=== PATIENT | female | born 1965 | race Caucasian/White ===

== ENCOUNTER 2019-10-26 07:41 | Outpatient (CLI) | payer BC, SELFPAY ==
--- NOTE | 2019-10-26 07:47 | MR_ITS ---
WS: [id number] MRI HEAD WITHOUT CONTRAST TECHNIQUE: Sagittal T1, T2 axial, T2 axial FLAIR, axial and coronal T1 images, axial susceptibility w eighted imaging, axial diffusion weighted images, and coronal T2 images were obtained. Some images ar e degraded due to susceptibility artifact. CLINICAL INFORMATION: TRIGEMINAL NEURALGIA OF LEFT SIDE OF FACE COMPARISON: None. FINDINGS: No evidence of restricted diffusion to suggest acute ischemia. Ventricular system and basal cisterns are patent. Minimal small vessel changes. Mild parenchymal volume loss. Normal posterior fossa. Jada l vascular flow voids at the skull base. No extra-axial fluid collections. No evidence of mass or mas s effect. No hemosiderin on the susceptibly weighted images. Normal optic chiasm and pituitary infundibulum. Temporal lobes and hippocampal formations are normal in appearance. No temporal lobe signal abnormalities. Visualized cavernous sinus and trigeminal nerve root entry zones appear normal. MR/MR head wo con* [id number] IMPRESSION: 1. No evidence of restricted diffusion to suggest acute ischemia. 2. Mild small vessel changes with mild parenchymal volume loss. 3. Temporal lobes and hippocampal formations are normal in appearance. No asym metric atrophy or temporal lobe signal abnormalities. 4. Normal optic chiasm and pituitary infundibulum. 5. Visualized left cavernous sinus and trigeminal nerve root entry zone appear normal.
== END 2019-10-26 07:42 | disposition home or self-care (01) ==
LOC: RADSHAW 07:44
PROVIDERS: Family Provider Internal Medicine; PCP Internal Medicine; Visit Provider Internal Medicine
DX: G50.0 Trigeminal neuralgia (principal)
CPT/HCPCS: 70551

== ENCOUNTER → 2020-03-17 12:41 | Outpatient (BNVA) | payer BC, SELFPAY | PROVIDERS: Absent Provider Dermatology; Family Provider Internal Medicine; PCP Internal Medicine; Visit Provider Dermatology | DX: L71.9 Rosacea, unspecified (principal); L57.0 Actinic keratosis; B07.8 Other viral warts; D18.01 Hemangioma of skin and subcutaneous tissue; L73.8 Other specified follicular disorders; L98.8 Other specified disorders of the skin and subcutaneous tissue | CPT/HCPCS: 17000; 17003; 99202; 99203 ==

== ENCOUNTER → 2020-03-25 08:23 | Outpatient (BNVA) | payer SELFPAY | PROVIDERS: Family Provider Internal Medicine; PCP Internal Medicine; Visit Provider Dermatology | DX: L98.8 Other specified disorders of the skin and subcutaneous tissue (principal); Z41.1 Encounter for cosmetic surgery | CPT/HCPCS: 64612; G0463; J0585 ==

== ENCOUNTER → 2020-04-09 08:18 | Outpatient (BNVA) | payer SELFPAY | PROVIDERS: Family Provider Internal Medicine; PCP Internal Medicine; Visit Provider Dermatology | DX: L98.8 Other specified disorders of the skin and subcutaneous tissue (principal); Z41.1 Encounter for cosmetic surgery | CPT/HCPCS: 64612; J0585 ==

== ENCOUNTER → 2020-05-20 13:56 | Outpatient (BNVA) | payer BC, SELFPAY | PROVIDERS: Family Provider Internal Medicine; PCP Internal Medicine; Visit Provider Dermatology | DX: L71.9 Rosacea, unspecified (principal); B07.8 Other viral warts; L72.0 Epidermal cyst | CPT/HCPCS: 17110; 99213 ==

== ENCOUNTER 2020-07-17 11:30 | Outpatient (CLI) | payer BC, SELFPAY ==
--- NOTE | 2020-07-17 11:37 | MM_ITS ---
WS: [id number] BILATERAL DIGITAL SCREENING MAMMOGRAPHY WITH CAD CLINICAL INFORMATION: SCREENING HISTORY: Screening mammogram. No current complaints. COMPARISON: TECHNIQUE: Bilateral CC and MLO views. FINDINGS: The breasts are composed of heterogeneous fibroglandular density tissue, which can limit the detectio n of small underlying mass lesions. Stable dense asymmetric breast tissue upper outer right breast. N o suspicious mass, asymmetry, calcifications, or architectural distortion. No evidence of malignancy. MM/[id number] IMPRESSION: BI-RADS: 2-Benign FOLLOW UP: 1 Year Follow-up Recommend return to annual screening mammography.
== END 2020-07-17 11:31 | disposition home or self-care (01) ==
LOC: RADSHAW 11:35
PROVIDERS: PCP Internal Medicine; Visit Provider Obstetrics & Gynecology
DX: Z12.31 Encounter for screening mammogram for malignant neoplasm of breast (principal)
CPT/HCPCS: 77067

== ENCOUNTER 2021-10-01 09:17 | Outpatient (CLI) | payer BC, SELFPAY ==
--- NOTE | 2021-10-01 09:25 | MM_ITS ---
WS: [id number] BILATERAL SCREENING DIGITAL MAMMOGRAM WITH CAD HISTORY: SCREENING COMPARISON: 07/17/2020, 06/15/2019 and 04/17/2018 Bilateral CC and MLO views submitted. Computer aided detection analyzed. Breast composition: There are scattered areas of fibroglandular density. No suspicious masses, microc alcifications or architectural distortion. Scattered asymmetries are stable over multiple prior exami nations. No distortion. No developing calcifications. MM/[place] [id number] IMPRESSION: BI-RADS: 2-Benign FOLLOW UP: 1 Year Follow-up
== END 2021-10-01 09:18 | disposition home or self-care (01) ==
LOC: RADSHAW 09:19
PROVIDERS: PCP Internal Medicine; Visit Provider Internal Medicine
DX: Z12.31 Encounter for screening mammogram for malignant neoplasm of breast (principal)
CPT/HCPCS: 77067

== ENCOUNTER 2022-11-04 11:24 | Outpatient (CLI) | payer OTHER, SELFPAY ==
--- NOTE | 2022-11-04 11:33 | MM_ITS ---
WS: [id number] BILATERAL SCREENING DIGITAL TOMOSYNTHESIS MAMMOGRAM WITH CAD HISTORY: SCREEN COMPARISON: 10/01/2021, 07/17/2020 Bilateral CC and MLO views with tomosynthesis and synthetic mammography submitted. Computer aided det ection analyzed. Breast composition: The breasts are heterogeneously dense, which may obscure small masses. No suspici ous masses, microcalcifications or architectural distortion. Asymmetries in the LEFT breast are stabl e over multiple prior studies. MM/[id number] IMPRESSION: BI-RADS: 2-Benign FOLLOW UP: 1 Year Follow-up
== END 2022-11-04 11:25 | disposition home or self-care (01) ==
LOC: RAD 11:28
PROVIDERS: PCP Internal Medicine; Visit Provider Obstetrics & Gynecology
DX: Z12.31 Encounter for screening mammogram for malignant neoplasm of breast (principal)
CPT/HCPCS: 77063; 77067

== ENCOUNTER 2023-04-01 16:02 | Outpatient (CLI) | payer OTHER, SELFPAY ==
--- NOTE | 2023-04-01 16:15 | US_ITS ---
WS: [id number] ULTRASOUND SOFT TISSUES RIGHT supraclavicular region. HISTORY: R22.1 - Localized swelling, mass and lump, neck COMPARISON: None available. TECHNIQUE: 2-D and color Doppler imaging is submitted. Ultrasound is directed to the RIGHT supraclavicular region. There is a benign appearing lymph node me asuring 8 x 4 mm. No increased vascularity. No additional lymph nodes are identified. US/US soft tissue head neck [id number] IMPRESSION: Palpable area in the RIGHT supraclavicular region corresponds to a benign-appea ring lymph node.
== END 2023-04-01 16:03 | disposition home or self-care (01) ==
LOC: RAD 16:04
PROVIDERS: PCP Internal Medicine; Visit Provider Obstetrics & Gynecology
DX: R22.1 Localized swelling, mass and lump, neck (principal)
CPT/HCPCS: 76536

== ENCOUNTER 2023-06-14 16:51 | Emergency (ER) | payer OTHER, SELFPAY ==
[2023-06-14 17:03] VITALS: BP 162/80; PULSE 90; RESP 18; TEMP 36.8; O2SAT 92; BMI 31.8
--- NOTE | 2023-06-14 17:06 | CTR_ITS ---
PROCEDURE INFORMATION: Exam: CT Abdomen And Pelvis With Contrast Exam date and time: 06/14/2023 5:54 PM Age: 58 years old Clinical indication: Abdominal pain; Acute; Prior surgery; Surgery date: 6+ months; Surgery type: Coty hyst tubal; Additional info: Abd pain TECHNIQUE: Imaging protocol: Computed tomography of the abdomen and pelvis with contrast. Radiation optimization: All CT scans at this facility use at least one of these dose optimization techniques: automated exposure control; mA and/or kV adjustment per patient size (includes targeted exams where dose is matched to clinical indication); or iterative reconstruction. Contrast material: OMNI 350; Contrast volume: 100 ml; Contrast route: INTRAVENOUS (IV); REPORTING DATA: Count of CT and Cardiac NM exams in prior 12 months: This patient has received 0 known CTs and 0 known cardiac nuclear medicine studies in the 12 months prior to the current study. COMPARISON: CR XR abdomen 1V* [id number] 07/13/2019 9:40 AM RADIATION DOSE METRICS: Total DLP (mGy-cm): 723.61 FINDINGS: Liver: Normal. No mass. Gallbladder and bile ducts: The gallbladder is absent. Pancreas: Normal. No ductal dilation. Spleen: Normal. No splenomegaly. Adrenal glands: Normal. No mass. Kidneys and ureters: Normal. No hydronephrosis. Stomach and bowel: Unremarkable. No obstruction. No mucosal thickening. Appendix: The appendix is absent. Intraperitoneal space: Unremarkable. No free air. No significant fluid collection. Vasculature: Unremarkable. No abdominal aortic aneurysm. Lymph nodes: Unremarkable. No enlarged lymph nodes. Urinary bladder: Unremarkable as visualized. Reproductive: There is a 3.1 x 2.3 cm cystic structure in the left ovary. This is incompletely assessed on this examination and can be further assessed with pelvic ultrasound if clinically indicated. Bones/joints: Unremarkable. No acute fracture. Soft tissues: Unremarkable. CT/CT abdomen pelvis w con* [id number] IMPRESSION: 1. No bowel obstruction or inflammatory process associated with the bowel. 2. No free air or significant free fluid in the abdomen or pelvis. 3. The appendix is absent. 4. There is a 3.1 x 2.3 cm cystic structure in the left ovary. This is incompletely assessed on this examination and can be further assessed with pelvic ultrasound if clinically indicated.
--- NOTE | 2023-06-14 17:09 | ED.C_ITS ---
Documented by User: Nerissa Schaffer MD 06/14/23 19:13 HPI - Psych General: Chief Complaint: Abdominal Pain Stated Complaint: abdominal pain Time Seen by Provider: 06/14/23 16:54 Source: patient Mode of arrival: ambulatory Limitations: no limitations History of Present Illness: 58-year-old female states she had a colonoscopy yesterday had a polyp removed states that she has had increasing pain last night and today. States mainly in her lower quadrants but is diffuse rates pain 8 out of 10 currently denies any vomiting denies any diarrhea denies any worsening proving factors she has had no fevers. 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 Gill at [facility] History of eye surgery (~10/2019) Treatment of glaucoma History of laparoscopic appendectomy (09/17/12) Performed by Dr. Hinojosa at [facility]. History of laparoscopic cholecystectomy (~1993) History of right breast biopsy (08/09/13) Performed by Dr. Hinojosa. Benign pathology. History of vaginal hysterectomy (~12/2001) TVH with A&P repair. Performed by Dr. Leslie at [facility]. Status post colonoscopy Family History (Updated 05/30/23 @ 15:46 by Jeanie Strickland MD) Father Hypertension Diabetes Heart disease Hypercholesteremia Mother Hypertension Diabetes Heart disease CAD (coronary artery disease) Brother Diabetes Grandmother Dementia Cancer Hodgkin lymphoma Grandfather Cancer prostate Social History Smoking and tobacco status: never smoked Alcohol intake: current Alcohol intake frequency: few times a month Alcohol type: wine Substance/Drug Use: never Lives independently: Yes Household members: spouse and children Marital status: Number of children: 3 Current occupational status: employed Current occupation: [employer]: [employer] Special cookie needs: No Agree to transfusion: Yes Physical Exam Const: COMMON NORMALS: no acute distress, patient oriented x3 and healthy appearing HENMT: COMMON NORMALS: normocephalic and atraumatic HEAD & SCALP: normocephalic and atraumatic Eye: COMMON NORMALS: conjunctivae normal CONJUNCTIVA: Yes conjunctivae normal Neck/C-Spine: COMMON NORMALS: full ROM and supple Chest: COMMONS NORMALS: normal inspection of the chest and normal palpation of entire chest wall Resp: COMMON NORMALS: normal respiratory effort Cardio: COMMON NORMALS: regular rate, regular rhythm and No murmurs present (Cardio) RATE: regular rate RHYTHM: regular rhythm GI: COMMON NORMALS: Normal to inspection, nondistended, normoactive bowel sounds present, Soft to palpation and no masses PALPATION: Yes Soft to palpation OTHER: diffuse tenderness Extremity: COMMON NORMALS: normal to inspection and full ROM Neuro: COMMON NORMALS: patient oriented x3, moves all extremities and no focal motor deficits Psych: COMMON NORMALS: mental status grossly normal, Normal thought process present and cooperative THOUGHT PROCESS: Normal thought process present Skin: COMMON NORMALS: no rashes or lesions noted and no wounds GENERAL SKIN EXAM: no rashes or lesions noted Course Vital Signs: Vital signs: Vital Signs Temperature 98.3 F 06/14/23 17:03 Pulse Rate 88 06/14/23 19:02 Respiratory Rate 16 06/14/23 19:02 Blood Pressure 146/78 06/14/23 19:02 Pulse Oximetry 93 06/14/23 19:02 Oxygen Delivery Me thod Room Air 06/14/23 18:30 MDM - Psych Medical Decision Making Patient presents here with abdominal pain CT scan here showed no acute abnormality she did have a possible left ovarian cyst her pain is mainly on the right side no signs of bowel perforation her pain has improved here she is to follow-up with Dr. Hinojosa who did her colonoscopy return if worsening she understands agrees to plan. Medical Records I reviewed the patient's medical records. Lab Data I reviewed the patient's lab results. 06/14/23 17:26 06/14/23 17:26 Radiology Impressions Abdomen/Pelvis CT 06/14/23 17: IMPRESSION: 1. No bowel obstruction or inflammatory process associated with the bowel. 2. No free air or significant free fluid in the abdomen or pelvis. 3. The appendix is absent. 4. There is a 3.1 x 2.3 cm cystic structure in the left ovary. This is incompletely assessed on this examination and can be further assessed with pelvic ultrasound if clinically indicated. Laboratory Results WBC 14.93 10^3/uL (3.29-11.43) H 06/14/23 17: RBC 4.97 10^6/uL (3.85-5.65) 06/14/23 17: Hgb 14.80 g/dL (11.27-16.99) 06/14/23: Hct 43.7 % (36-47) 06/14/23 17: MCV 87.9 fl (85-98) 06/14/23 17: MCH 29.8 pg (27-33) 06/14/23: MCHC 33.9 g/dL (30-55) 06/14/23: RDW 11.8 % (12.1-15.1) L 06/14/23 17: Plt Count 294 10^3/cmm (157-399) 06/14/23 17: MPV 9.2 fL (7.4-10.4) 06/14/23 17: Neut % (Auto) 80.2 % 06/14/23 17: Lymph % (Auto) 13.1 % 06/14/23 17: [place] % (Auto) 5.4 % 06/14/23: Eos % (Auto) 0.4 % 06/14/23: Baso % (Auto) 0.4 % 06/14/23: Neut # (Auto) 11.98 10^3/uL (1.8-7.7) H 06/14/23 17: Lymph # (Auto) 2.0 10^3/uL (0.8-4.8) 06/14/23 17:26 [place] # (Auto) 0.8 10^3/uL (0.2-0.9) 06/14/23 17:26 Eos # (Auto) 0.1 10^3/uL (0.0-0.8) 06/14/23 17:26 Baso # (Auto) 0.1 10^3/uL (0.0-0.1) 06/14/23 17:26 Nucleated RBC % (auto) 0 % 06/14/23 17:26 Nucleated RBCs # 0.0 /100WBC 06/14/23 17:26 Sodium 137 mmol/L (136-145) 06/14/23 17:26 Potassium 4.0 mmol/L (3.5-5.1) 06/14/23 17:26 Chloride 103 mmol/L (98-107) 06/14/23 17:26 Carbon Dioxide 23 mmol/L (22-29) 06/14/23 17:26 Anion Gap 15.0 (5-19) 06/14/23 17:26 BUN 10 mg/dL (6-20) 06/14/23 17:26 Creatinine 0.7 mg/dL (0.5-0.9) 06/14/23 17:26 GFR Calculation 86.2 mL/min (90-130) L 06/14/23 17:26 Glucose 216 mg/dL (65-115) H 06/14/23 17:26 Calculated Osmolality 290 mOsm/kg (285-295) 06/14/23 17:26 Calcium 8.7 mg/dL (8.5-10.5) 06/14/23 17:26 Total Bilirubin 0.7 mg/dL (0.15-1.2) 06/14/23 17:26 AST 10 U/L (0-32) 06/14/23 17:26 ALT 16 U/L (0-33) 06/14/23 17:26 Alkaline Phosphatase 94 U/L (35-105) 06/14/23 17:26 Total Protein 6.9 g/dL (6.6-8.7) 06/14/23 17:26 Albumin 4.1 g/dL (3.5-5.2) 06/14/23 17:26 Globulin 2.8 g/dL (1.3-4.6) 06/14/23 17:26 Lipase 22 U/L (13-60) 06/14/23 17:26 All radiology interpretation(s) finalized by discharge Discharge Plan Discharge Patient Disposition: Home Clinical Impression: Abdominal pain Condition: Stable Prescriptions: New hydrocodone-acetaminophen 5-325 mg tablet 1 tab PO Q6H PRN (Reason: pain) Qty: 14 0RF ondansetron 4 mg tablet,disintegrating 4 mg PO Q6H PRN (Reason: nausea and vomiting) Qty: 14 0RF No Action aspirin 81 mg tablet,delayed release (DR/EC) 81 mg PO DAILY latanoprost 0.005 % drops 1 drop ophthalmic (eye) DAILY omeprazole 40 mg capsule,delayed release(DR/EC) 40 mg PO DAILY dorzolamide-timolol (PF) 2-0.5 % drops 1 drp ophthalmic (eye) BID hydroxychloroquine 200 mg tablet 200 mg PO BID Qty: 180 3RF prednisone 10 mg tablet See Rx Instructions PO .COMPLEX PRN (Reason: joint pain) Qty: 30 1RF Rx Instructions: take 1 tab daily for 3-7 days prn joint pain flare PO PRN; metformin 500 mg tablet 500 mg PO DAILY Qty: 90 0RF Discharge Orders: Discharge ED (Routine); Ordered 06/14/23 Ordered By: Nerissa Schaffer Referrals: Alli Hinojosa MD [Physician] - 1-3 days Jeanie Strickland MD [Primary Care Provider] - Discharge Diet: Advance as tolerated Discharge Activity: Resume usual activity Patient Instructions: Abdominal Pain (ED), Opioid Safety Coding Level of Care Code ED Land Conservation Specialist for Chg Fwd Documented by User: CHARIS Crooks 06/14/23 17:44 HPI - Psych General: Chief Complaint: Abdominal Pain Stated Complaint: abdominal pain Time Seen by Provider: 06/14/23 16:54 PFSH ED PFSH: Medical History Diabetes Gastroesophageal reflux 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 Gill at [facility] History of eye surgery (~10/2019) Treatment of glaucoma History of laparoscopic appendectomy (09/17/12) Performed by Dr. Hinojosa at [facility]. History of laparoscopic cholecystectomy (~1993) History of right breast biopsy (08/09/13) Performed by Dr. Hinojosa. Benign pathology. History of vaginal hysterectomy (~12/2001) TVH with A&P repair. Performed by Dr. Leslie at [facility]. Status post colonoscopy Family History (Updated 05/30/23 @ 15:46 by Jeanie Strickland MD) Father Hypertension Diabetes Heart disease Hypercholesteremia Mother Hypertension Diabetes Heart disease CAD (coronary artery disease) Brother Diabetes Grandmother Dementia Cancer Hodgkin lymphoma Grandfather Cancer prostate Social History Smoking and tobacco status: never smoked Alcohol intake: current Alcohol intake frequency: few times a month Alcohol type: wine Substance/Drug Use: never Lives independently: Yes Household members: spouse and children Marital status: Number of children: 3 Current occupational status: employed Current occupation: [employer]: [employer] Special cookie needs: No Agree to transfusion: Yes Course ED course: Note was inadvertently started on patient however Dr. Schaffer assumed care/started note. I never saw or assessed patient nor was I involved in any portion of her care. ES Vital Signs: Vital signs: Vital Signs Temperature 98.3 F 06/14/23 17:03 Pulse Rate 88 06/14/23 19:02 Respiratory Rate 16 06/14/23 19:02 Blood Pressure 146/78 06/14/23 19:02 Pulse Oximetry 93 06/14/23 19:02 Oxygen Delivery Me thod Room Air 06/14/23 18:30 MDM - Psych Lab Data 06/14/23 17:26 06/14/23 17:26 Radiology Impressions Abdomen/Pelvis CT 06/14/23 17:06 IMPRESSION: 1. No bowel obstruction or inflammatory process associated with the bowel. 2. No free air or significant free fluid in the abdomen or pelvis. 3. The appendix is absent. 4. There is a 3.1 x 2.3 cm cystic structure in the left ovary. This is incompletely assessed on this examination and can be further assessed with pelvic ultrasound if clinically indicated. Laboratory Results WBC 14.93 10^3/uL (3.29-11.43) H 06/14/23 17: RBC 4.97 10^6/uL (3.85-5.65) 06/14/23 17: Hgb 14.80 g/dL (11.27-16.99) 06/14/23 17: Hct 43.7 % (36-47) 06/14/23: MCV 87.9 fl (85-98) 06/14/23: MCH 29.8 pg (27-33) 06/14/23: MCHC 33.9 g/dL (30-55) 06/14/23: RDW 11.8 % (12.1-15.1) L 06/14/23: Plt Count 294 10^3/cmm (157-399) 06/14/23: MPV 9.2 fL (7.4-10.4) 06/14/23 17: Neut % (Auto) 80.2 % 06/14/23: Lymph % (Auto) 13.1 % 06/14/23: [place] % (Auto) 5.4 % 06/14/23: Eos % (Auto) 0.4 % 06/14/23: Baso % (Auto) 0.4 % 06/14/23: Neut # (Auto) 11.98 10^3/uL (1.8-7.7) H 06/14/23 17: Lymph # (Auto) 2.0 10^3/uL (0.8-4.8) 06/14/23: [place] # (Auto) 0.8 10^3/uL (0.2-0.9) 06/14/23 17: Eos # (Auto) 0.1 10^3/uL (0.0-0.8) 06/14/23: Baso # (Auto) 0.1 10^3/uL (0.0-0.1) 06/14/23 17:26 Nucleated RBC % (auto) 0 % 06/14/23 17:26 Nucleated RBCs # 0.0 /100WBC 06/14/23 17:26 Sodium 137 mmol/L (136-145) 06/14/23 17:26 Potassium 4.0 mmol/L (3.5-5.1) 06/14/23 17:26 Chloride 103 mmol/L (98-107) 06/14/23 17:26 Carbon Dioxide 23 mmol/L (22-29) 06/14/23 17:26 Anion Gap 15.0 (5-19) 06/14/23 17:26 BUN 10 mg/dL (6-20) 06/14/23 17:26 Creatinine 0.7 mg/dL (0.5-0.9) 06/14/23 17:26 GFR Calculation 86.2 mL/min (90-130) L 06/14/23 17:26 Glucose 216 mg/dL (65-115) H 06/14/23 17:26 Calculated Osmolality 290 mOsm/kg (285-295) 06/14/23 17:26 Calcium 8.7 mg/dL (8.5-10.5) 06/14/23 17:26 Total Bilirubin 0.7 mg/dL (0.15-1.2) 06/14/23 17:26 AST 10 U/L (0-32) 06/14/23 17:26 ALT 16 U/L (0-33) 06/14/23 17:26 Alkaline Phosphatase 94 U/L (35-105) 06/14/23 17:26 Total Protein 6.9 g/dL (6.6-8.7) 06/14/23 17:26 Albumin 4.1 g/dL (3.5-5.2) 06/14/23 17:26 Globulin 2.8 g/dL (1.3-4.6) 06/14/23 17:26 Lipase 22 U/L (13-60) 06/14/23 17:26 Discharge Plan Discharge Patient Disposition: Home Clinical Impression: Abdominal pain Condition: Stable Prescriptions: New hydrocodone-acetaminophen 5-325 mg tablet 1 tab PO Q6H PRN (Reason: pain) Qty: 14 0RF ondansetron 4 mg tablet,disintegrating 4 mg PO Q6H PRN (Reason: nausea and vomiting) Qty: 14 0RF No Action aspirin 81 mg tablet,delayed release (DR/EC) 81 mg PO DAILY latanoprost 0.005 % drops 1 drop ophthalmic (eye) DAILY omeprazole 40 mg capsule,delayed release(DR/EC) 40 mg PO DAILY dorzolamide-timolol (PF) 2-0.5 % drops 1 drp ophthalmic (eye) BID hydroxychloroquine 200 mg tablet 200 mg PO BID Qty: 180 3RF prednisone 10 mg tablet See Rx Instructions PO .COMPLEX PRN (Reason: joint pain) Qty: 30 1RF Rx Instructions: take 1 tab daily for 3-7 days prn joint pain flare PO PRN; metformin 500 mg tablet 500 mg PO DAILY Qty: 90 0RF Discharge Orders: Discharge ED (Routine); Ordered 06/14/23 Ordered By: Nerissa Schaffer Referrals: Alli Hinojosa MD [Physician] - 1-3 days Jeanie Strickland MD [Primary Care Provider] - Discharge Diet: Advance as tolerated Discharge Activity: Resume usual activity Patient Instructions: Abdominal Pain (ED), Opioid Safety Coding Level of Care Code ED Land Conservation Specialist for Yandy Pope
[2023-06-14 17:28] VITALS: RESP 18; O2SAT 94
[2023-06-14] MEDS: HYDROmorphone 1 mg/mL INJ 1 mL IVP (17:28)
[2023-06-14] MEDS: ondansetron 2 mg/ML SDV 2 mL 4 MG IVP (17:28)
[2023-06-14 17:32] LABS: Basophils # 0.1 10^3/uL (0.0-0.1); Basophils % 0.4 %; Eosinophils # 0.1 10^3/uL (0.0-0.8); Eosinophils % 0.4 %; Hematocrit 43.7 % (36-47); Lymphocytes % 13.1 %; Mean Corpuscular HGB Conc 33.9 g/dL (30-55); Mean Corpuscular Hemoglobin 29.8 pg (27-33); Mean Corpuscular Volume 87.9 fl (85-98); Mean Platelet Volume 9.2 fL (7.4-10.4); Monocytes # 0.8 10^3/uL (0.2-0.9); Monocytes % 5.4 %; Neutrophils # 11.98 10^3/uL (1.8-7.7); Neutrophils % 80.2 %; Nucleated Red Blood Cells % 0 %; Platelet Count 294 10^3/cmm (157-399); Red Blood Count 4.97 10^6/uL (3.85-5.65); Red Cell Distribution Width 11.8 % (12.1-15.1); White Blood Count 14.93 10^3/uL (3.29-11.43)
[2023-06-14] MEDS: iohexol 350 mg/mL 500 mL Btl (per mL) IV (17:55)
[2023-06-14 17:58] LABS: Alanine Aminotransferase 16 U/L (0-33); Albumin Level 4.1 g/dL (3.5-5.2); Alkaline Phosphatase 94 U/L (35-105); Aspartate Amino Transferase 10 U/L (0-32); Blood Urea Nitrogen 10 mg/dL (6-20); Calcium 8.7 mg/dL (8.5-10.5); Carbon Dioxide 23 mmol/L (22-29); Chloride 103 mmol/L (98-107); Globulin 2.8 g/dL (1.3-4.6); Glomerular Filtration Rate 86.2 mL/min (90-130); Glucose 216 mg/dL (65-115); Lipase 22 U/L (13-60); Osmolality Calculated 290 mOsm/kg (285-295); Sodium 137 mmol/L (136-145); Total Bilirubin 0.7 mg/dL (0.15-1.2); Total Protein 6.9 g/dL (6.6-8.7)
[2023-06-14 18:29] VITALS: BP 165/76; PULSE 85; RESP 16; O2SAT 92
[2023-06-14 18:30] VITALS: O2SAT 95
[2023-06-14 19:02] VITALS: BP 146/78; PULSE 88; RESP 16; O2SAT 93
== END 2023-06-14 19:03 | disposition home or self-care (01) ==
PROVIDERS: Physician Assistant; Emergency Provider Emergency Medicine; PCP Family Medicine
DX: R10.30 Lower abdominal pain, unspecified (principal); N83.202 Unspecified ovarian cyst, left side; Z79.82 Long term (current) use of aspirin; Z79.02 Long term (current) use of antithrombotics/antiplatelets; E11.9 Type 2 diabetes mellitus without complications; E78.5 Hyperlipidemia, unspecified
CPT/HCPCS: 74177; 80053; 83690; 85025; 96374; 96375; 99285; J1170; J2405; Q9967

== ENCOUNTER → 2023-08-05 12:37 | Outpatient (BNVA) | payer OTHER, SELFPAY | PROVIDERS: PCP Family Medicine; Visit Provider Family Medicine | DX: Z79.899 Other long term (current) drug therapy (principal); M19.90 Unspecified osteoarthritis, unspecified site | CPT/HCPCS: 80076; 82565; 85025; 86140 ==

== ENCOUNTER → 2024-01-06 12:09 | Outpatient (BNVA) | payer OTHER, SELFPAY | PROVIDERS: PCP Family Medicine; Visit Provider Family Medicine | DX: R73.03 Prediabetes (principal) | CPT/HCPCS: 83036 ==

== ENCOUNTER → 2024-02-10 07:34 | Outpatient (BNVA) | payer OTHER, SELFPAY | PROVIDERS: PCP Family Medicine; Visit Provider Family Medicine | DX: E11.9 Type 2 diabetes mellitus without complications (principal); R53.83 Other fatigue; Z79.899 Other long term (current) drug therapy | CPT/HCPCS: 80053; 80061; 82306; 82607; 83036 ==

== ENCOUNTER 2024-08-13 11:49 | Outpatient (CLI) | payer OTHER, SELFPAY ==
[2024-08-13 12:48] LABS: Basophils # 0.1 10^3/uL (0.0-0.1); Basophils % 0.6 %; Eosinophils # 0.2 10^3/uL (0.0-0.8); Eosinophils % 1.9 %; Hematocrit 45.2 % (36-47); Lymphocytes # 3.2 10^3/uL (0.8-4.8); Mean Corpuscular HGB Conc 33.4 g/dL (30-55); Mean Corpuscular Hemoglobin 29.4 pg (27-33); Mean Corpuscular Volume 88.1 fl (85-98); Mean Platelet Volume 9.7 fL (7.4-10.4); Monocytes # 0.5 10^3/uL (0.2-0.9); Monocytes % 6.5 %; Neutrophils # 3.83 10^3/uL (1.8-7.7); Neutrophils % 49.9 %; Nucleated Red Blood Cells % 0 %; Platelet Count 343 10^3/cmm (157-399); Red Blood Count 5.13 10^6/uL (3.85-5.65); Red Cell Distribution Width 11.9 % (12.1-15.1)
[2024-08-13 12:57] LABS: Erythrocyte Sedimentation Rate 2 mm/hr (0-15)
[2024-08-13 13:13] LABS: Alanine Aminotransferase 23 U/L (0-33); Albumin Level 4.3 g/dL (3.5-5.2); Alkaline Phosphatase 74 U/L (35-105); Aspartate Amino Transferase 18 U/L (0-32); Globulin 2.8 g/dL (1.3-4.6); Glomerular Filtration Rate 85.9 mL/min (90-130); Total Bilirubin 0.4 mg/dL (0.15-1.2); Total Protein 7.1 g/dL (6.6-8.7)
== END 2024-08-13 11:50 | disposition home or self-care (01) ==
LOC: LAB 11:52
PROVIDERS: PCP Family Medicine; Visit Provider Internal Medicine Rheumatology
DX: Z79.899 Other long term (current) drug therapy (principal); M19.90 Unspecified osteoarthritis, unspecified site
CPT/HCPCS: 36415; 80076; 82565; 85025; 85651; 86140

== ENCOUNTER 2024-10-27 14:39 | Emergency (ER) | payer OTHER, SELFPAY ==
[2024-10-27 14:40] VITALS: BP 143/82; PULSE 71; RESP 16; TEMP 36.7; O2SAT 97; BMI 29.2
[2024-10-27] MEDS: acetaminophen 500 mg Tablet 1000 MG PO (15:30)
--- NOTE | 2024-10-27 16:41 | ED_ITS ---
HPI - Head Injury 2 General: Chief complaint: Head Injury Stated complaint: laceration / forehead Time Seen by Provider: 10/27/24 16:39 History of Present Illness: 59-year-old female was walking or workin g outside she had a branch snapped back and catch the forehead she has a 7-1/2 cm laceration of the scalp. Initially she had significant amount of bleeding is minimal bleeding at this time. She did not lose consciousness has no neck pain no other injury. She did not fall. Associated symptoms: Deny neck pain Related Data Home Medications ?Medication ?Instructions ?Recorded ?Confirmed aspirin 81 mg tablet,delayed 81 mg PO DAILY 01/16/20 1 09/22/23 release latanoprost 0.005 % eye drops 1 drop ophthalmic (eye) DAILY 03/17/20 07/23/24 dorzolamide 2 %-timolol 0.5 % (PF) 1 drp ophthalmic (e ye) BID 05/30/23 07/23/24 eye drops tirzepatide [Mounjaro] SUBCUT 07/23/24 07/23/24 Previous Rx's ?Medication ?Instructions ?Recorded carbamazepine 100 mg 100 mg PO BID #60 caps 03/16 capsule,extended release [id number] prednisone 10 mg tablet See Rx Instructions PO .COMP ALYSSA 05/04/24 PRN joint pain #30 tabs hydroxychloroquine 200 mg tablet 200 mg PO BID #180 ta bs 07/23/24 metformin 500 mg tablet 500 mg PO DAILY #90 tabs 02/26 omeprazole 40 mg capsule,delayed 40 mg PO DAILY #90 ca ps 10/19/24 release mupirocin 2 % topical ointment 1 applic topical BID #1 5 grams 10/27/24 (Centany) Allergies Allergy/AdvReac Type Severity Reaction Status Date / Time No Known Allergies Allergy Verified 02/10/24 07:09 Review of Systems 2 Const: Denies: fever(s) or chills Card: Denies: chest pain Resp: Denies: dyspnea GI: Denies: abdominal pain : Denies: dysuria, urinary frequency or urinary urgency Musc: Denies: neck pain or back pain Skin/Breast: Denies: rash PFSH ED 2 PFSH: Medical History Seronegative rheumatoid arthritis of both hands Trigeminal neuralgia of left side of face High risk medication use Inflammatory arthritis Positive SUZY (antinuclear antibody) Diabetes Hyperlipidemia Sleep apnea Gastroesophageal reflux 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 Hinojosa. Benign pathology. History of laparoscopic appendectomy (09/17/12) Performed by Dr. Hinojosa at [facility] [place]. History of vaginal hysterectomy (~12/2001) TVH with A&P repair. Performed by Dr. Leslie at [facility] [place]. History of bilateral tubal ligation (~1999) Perfromed by Dr. Gill at [facility] [place] History of laparoscopic cholecystectomy (~1993) History of eye surgery (~10/2019) Treatment of glaucoma Family History Father Hypertension Diabetes Heart disease Hypercholesteremia Mother Hypertension Diabetes Heart disease CAD (coronary artery disease) Brother Diabetes Grandmother Dementia Cancer Hodgkin lymphoma Grandfather Cancer prostate Social History Smoking and tobacco/nicotine status: current every day tobacco/nicotine user Alcohol intake: current Alcohol intake frequency: few times a month Alcohol type: wine Substance/Drug Use: never Lives independently: Yes Household members: spouse and children Marital status: Number of children: 3 Current occupational status: employed Current occupation: [employer] Cookie/Scientologist: [employer] Special cookie needs: No Agree to transfusion: Yes Physical Exam 2 Const: COMMON NORMALS: no acute distress GENERAL APPEARANCE: cooperative and comfortable ORIENTATION/CONSCIOUSNESS: Yes awake, Yes oriented to person, Yes oriented to place and Yes oriented to time HENMT: COMMON NORMALS: normocephalic and hearing grossly normal bilaterally HEAD & SCALP: normocephalic FACE & SINUS IMAGES: 1. Resp: COMMON NORMALS: normal respiratory effort, No retractions, No use of accessory muscles and clear to auscultation bilaterally AUSCULTATION: clear to auscultation bilaterally Cardio: COMMON NORMALS: regular rate, regular rhythm and No murmurs present (Cardio) RATE: regular rate RHYTHM: regular rhythm Extremity: COMMON NORMALS: normal to inspection, capillary refill normal, no clubbing, cyanosis or edema, no calf tenderness and no pedal edema Neuro: SENSORIUM/ORIENTATION: Yes oriented to person, Yes oriented to place and Yes oriented to time Skin: OTHER: 7/2 cm laceration forehead. Procedures Laceration Laceration 1: Site: face Size (cm): 7.5 Description: irregular Depth: simple, single layer Local Anesthetic: lidocaine 1% and with epi Amount of anesthesia used (mL): 6 Pre-repair: wound explored and irrigated extensively Skin layer closed with: nylon Size (cm): 5-0 Number of sutures: 2 Technique: simple, interrupted (1 to approximate the apex of the wound) and running (1 running suture for the length of the wound) Course 2 Vital Signs: Vital signs: Vital Signs Temperature 98.0 F 10/27/24 14:40 Pulse Rate 77 10/27/24 17:44 Respiratory Rate 16 10/27/24 14:40 Blood Pressure 127/62 10/27/24 17:44 Pulse Oximetry 97 10/27/24 17:44 Oxygen Delivery Me thod Room Air 10/27/24 14:40 MDM - Head Injury Medcial Decision Making Wound care instructions given apply topical antibiotic ointment. Tetanus updated follow-up in 7 days to have sutures removed to doctors office. No radiology studies performed this visit Discharge Plan Discharge Patient Disposition: Home Clinical Impression: Laceration Condition: Stable Prescriptions: New mupirocin [Centany] 2 % ointment 1 applic topical BID Qty: 15 0RF No Action aspirin 81 mg tablet,delayed release (DR/EC) 81 mg PO DAILY latanoprost 0.005 % drops 1 drop ophthalmic (eye) DAILY dorzolamide-timolol (PF) 2-0.5 % drops 1 drp ophthalmic (eye) BID hydroxychloroquine 200 mg tablet 200 mg PO BID Qty: 180 1RF tirzepatide [Mounjaro] SUBCUT carbamazepine 100 mg capsule, ER multiphase 12 hr 100 mg PO BID Qty: 60 0RF prednisone 10 mg tablet See Rx Instructions PO .COMPLEX PRN (Reason: joint pain) Qty: 30 1RF Rx Instructions: take 1 tab daily for 3-7 days prn joint pain flare PO PRN; metformin 500 mg tablet 500 mg PO DAILY Qty: 90 0RF omeprazole 40 mg capsule,delayed release(DR/EC) 40 mg PO DAILY Qty: 90 0RF Discharge Orders: Discharge ED (Routine); Ordered 10/27/24 Ordered By: Dipesh Mendoza Referrals: Jeanie Strickland MD [Primary Care Provider] - Discharge Diet: Usual diet Discharge Activity: Resume usual activity Patient Instructions: Laceration (ED), Opioid Safety, Pain Management Activity Restrictions/Additional Instructions: Thank you for choosing [facility] for your healthcare needs today. It is very important that you follow up as instructed or that you return to the Emergency Department should you have concerns or if your condition changes or worsens in any way. You are seen in the emergency room after laceration to your forehead. Laceration is closed with sutures apply topical antibiotic ointment to the wound twice a day until the sutures are removed. Sutures should be removed in 6 to 7 days. Your primary care doctor can remove the sutures. Print Language: Hungarian Coding Level of Care Code ED Medical Laboratory Technologist for Yandy Pope
[2024-10-27] MEDS: lidocaine-epi 1% 20 mL INJ INJECTION (17:29)
[2024-10-27] MEDS: tetanus-dipt-pertussis 0.5 mL SDV IM (17:43)
[2024-10-27 17:44] VITALS: BP 127/62; PULSE 77; O2SAT 97
== END 2024-10-27 17:44 | disposition home or self-care (01) ==
PROVIDERS: Emergency Provider Family Medicine; PCP Family Medicine
DX: S01.01XA Laceration without foreign body of scalp, initial encounter (principal); Z79.84 Long term (current) use of oral hypoglycemic drugs; Z72.0 Tobacco use; E78.5 Hyperlipidemia, unspecified; E11.9 Type 2 diabetes mellitus without complications; W20.8XXA Other cause of strike by thrown, projected or falling object, initial encounter
CPT/HCPCS: 12014; 90471; 90715; 99283

== ENCOUNTER 2024-12-24 16:18 | Outpatient (CLI) | payer OTHER, SELFPAY ==
[2024-12-24 17:06] LABS: Basophils # 0.1 10^3/uL (0.0-0.1); Basophils % 0.7 %; Eosinophils # 0.2 10^3/uL (0.0-0.8); Eosinophils % 1.9 %; Hematocrit 41.6 % (36-47); Lymphocytes # 3.3 10^3/uL (0.8-4.8); Lymphocytes % 37.8 %; Mean Corpuscular HGB Conc 33.7 g/dL (30-55); Mean Corpuscular Hemoglobin 30.1 pg (27-33); Mean Corpuscular Volume 89.5 fl (85-98); Mean Platelet Volume 9.1 fL (7.4-10.4); Monocytes # 0.6 10^3/uL (0.2-0.9); Monocytes % 6.5 %; Neutrophils # 4.55 10^3/uL (1.8-7.7); Neutrophils % 52.9 %; Nucleated Red Blood Cells % 0 %; Platelet Count 280 10^3/cmm (157-399); Red Blood Count 4.65 10^6/uL (3.85-5.65); Red Cell Distribution Width 11.9 % (12.1-15.1)
[2024-12-24 17:13] LABS: Erythrocyte Sedimentation Rate 1 mm/hr (0-15)
[2024-12-24 17:21] LABS: Alanine Aminotransferase 14 U/L (0-33); Albumin Level 4.3 g/dL (3.5-5.2); Alkaline Phosphatase 75 U/L (35-105); Aspartate Amino Transferase 14 U/L (0-32); Globulin 2.2 g/dL (1.3-4.6); Glomerular Filtration Rate 73.7 mL/min (90-130); Total Bilirubin 0.2 mg/dL (0.15-1.2); Total Protein 6.5 g/dL (6.6-8.7)
== END 2024-12-24 16:19 | disposition home or self-care (01) ==
PROVIDERS: PCP Family Medicine; Visit Provider Internal Medicine Rheumatology
DX: Z79.899 Other long term (current) drug therapy (principal)
CPT/HCPCS: 36415; 80076; 82565; 85025; 85651; 86140